=== PATIENT | female | born 1950 | race Two or more races ===

== ENCOUNTER → 2019-03-12 | Outpatient (CLI) | payer MEDICARE ==
[~2019-03-12] MED LIST: OMNIPAQUE 350 MG/ML, 100ML BOTTLE ONE
== END | disposition home or self-care (01) ==
LOC: CFH 12:45
PROVIDERS: ATTEND Family Medicine
DX: R55 Syncope and collapse (principal)
CPT/HCPCS: 70470; 82565; Q9967

== ENCOUNTER → 2019-04-23 | Outpatient (CLI) | payer MEDICARE | END | disposition home or self-care (01) | LOC: CFH 12:42 | PROVIDERS: ATTEND Internal Medicine Cardiovascular Disease | DX: I08.3 Combined rheumatic disorders of mitral, aortic and tricuspid valves (principal); E78.5 Hyperlipidemia, unspecified | CPT/HCPCS: 93306 ==

== ENCOUNTER 2020-05-01 21:18 | Emergency (ER) | payer MEDICARE ==
[~2020-05-01] VITALS: Ht 165.1 cm; Wt 54.5 kg
[2020-05-01] MEDS ORDERED: ONDANSETRON ODT 4 MG ONE (21:24)
--- NOTE | 2020-05-01 21:27 | NUR ---
PT MEDICATED IN TRIAGE FOR VOMITING
[2020-05-01] MEDS ORDERED: ONDANSETRON 4 MG TABLET PO ONE (21:30)
[2020-05-01] MEDS ORDERED: ONDANSETRON 2MG/ML, 2ML ONE (21:40)
[2020-05-01] MEDS ORDERED: HYDROmorphone 1 MG/ML, 1ML INJ ONE (21:40)
[2020-05-01] MEDS ORDERED: ONDANSETRON ODT 4 MG PO ONE (22:00)
[2020-05-01] MEDS ORDERED: SODIUM CHLORIDE 0.9% 1,000ML IVBOLUS ONE (22:00)
[2020-05-01] MEDS ORDERED: HYDROmorphone 1 MG/ML, 1ML INJ IVPush PRN (22:00)
[2020-05-01] MEDS ORDERED: PROMETHAZINE 25 MG/ML, 1ML IM ONE (22:00)
[2020-05-01] MEDS ORDERED: SODIUM CHLORIDE FLUSH 10ML SYR IVF ONE (22:00)
[2020-05-01 22:15] LABS: BASOPHILS # (AUTO) 0.05 x10^3/uL (0-0.1); BASOPHILS % (AUTO) 0 % (0-1); EOSINOPHILS # (AUTO) 0.17 x10^3/uL (0-0.4); EOSINOPHILS % (AUTO) 1 % (1-7); LYMPHOCYTES # (AUTO) 0.37 x10^3/uL (1-3.4); LYMPHOCYTES % (AUTO) 3 % (22-44); MD NO; MEAN CORPUSCULAR HEMOGLOBIN 30.9 pg (27.0-34.8); MEAN CORPUSCULAR HGB CONC 33.7 g/dL (32.4-35.8); MEAN CORPUSCULAR VOLUME 91.7 fL (80-100); MEAN PLATELET VOLUME 8.8 fL (7.4-10.4); MONOCYTES # (AUTO) 0.24 x10^3/uL (0.2-0.8); MONOCYTES % (AUTO) 2 % (2-9); NEUTROPHILS # (AUTO) 11.43 x10^3/uL (1.8-6.8); NEUTROPHILS % (AUTO) 93 % (42-75); PLATELET COUNT 236 x10^3/uL (130-400); RED BLOOD COUNT 5.08 x10^6/uL (3.82-5.3); RED CELL DISTRIBUTION WIDTH 12.8 % (9.6-15.2)
[2020-05-01 22:25] LABS: ALANINE AMINOTRANSFERASE 30 U/L (12-78); ALBUMIN 4.5 g/dL (3.4-5.0); ANION GAP 10 mmol/L (5-15); CALCIUM 9.2 mg/dL (8.5-10.1); CHLORIDE 102 mmol/L (98-107); CREATININE 0.87 mg/dL (0.55-1.02)
[2020-05-01 22:29] LABS: ALKALINE PHOSPHATASE 81 U/L (45-117); BILIRUBIN,TOTAL 0.7 mg/dL (0.2-1.0); TOTAL PROTEIN 8.3 g/dL (6.4-8.2); TROPONIN I < 0.015 ng/mL (0.000-0.045)
[2020-05-01 22:43] LABS: MICROSCOPIC AUTO
[2020-05-01] MEDS ORDERED: OMNIPAQUE 350 MG/ML, 100ML BOTTLE ONE (23:51)
--- NOTE | 2020-05-02 00:30 | NUR ---
PATIENT STATED THAT SHE WAS DIZZY WHEN STANDING UP. NO CHANGE IN PATIENT'S VITAL SIGNS. PATIENT GIVEN EDUCATION REGARDING PAIN MEDICATION GIVEN PREVIOUSLY. WILL GIVE PATIENT 30 MINS AND REASSESS FOR DISCHARGE.
[2020-05-02] MEDS ORDERED: ONDANSETRON 2MG/ML, 2ML ONE (00:53)
--- NOTE | 2020-05-02 00:58 | NUR ---
PATIENT AMBULATED TO RESTROOM, GAIT IS UNSTEADY AT THIS TIME. PATIENT IS UNABLE TO KEEP OXYGEN SATURATION ABOVE 89% ON RA. SPOKE WITH MD REGARDING PATIENT'S DISCHARGE. WILL KEEP PATIENT ADDITIONAL 1HR TO RE-EVALUATE PATIENT FOR SAFE DISCHARGE. PATIENT GIVEN 4MG ZOFRAN IVP FOR NAUSEA.
--- NOTE | 2020-05-02 01:58 | NUR ---
Break RN: patient states " I little bit dizzy but not like earlier ".
--- NOTE | 2020-05-02 02:10 | NUR ---
PATIENT STATED THAT SHE WOULD LIKE TO TRY AND GO HOME. PATIENT'S GAIT IS STEADY, AND VITAL SIGNS ARE STABLE. PATIENT AMBULATORY TO RESTROOM, VOMITING CONTINUED. SPOKE WITH PROVIDER. WILL ADMINISTER PHENAGREN 25MG IM.
[2020-05-02] MEDS ORDERED: PROMETHAZINE 25 MG/ML, 1ML ONE (02:25)
--- NOTE | 2020-05-02 02:47 | NUR ---
PATIENT STATED THAT SHE WANTED TO GO HOME, AND NOT WAIT FOR MEDICATION TO START WORKING. PATIENT WAS GIVEN INFORMATION REGARDING SELF CARE AT HOME. PATIENT'S VITAL SIGNS ARE STABLE. PATIENT TAKEN TO DISCHARGE DESK VIA WHEELCHAIR TO IMPROVE PATIENT SAFETY. PATIENT VERBALIZED UNDERSTANDING OF ZOFRAN PRESCRIPTION AND AT HOME USAGE.
[2020-05-02 02:48] VITALS: BP 143/52
== END 2020-05-02 02:46 | disposition home or self-care (01) ==
LOC: ED 22:33
DX: R11.2 Nausea with vomiting, unspecified (principal); R19.7 Diarrhea, unspecified; R10.84 Generalized abdominal pain; R94.31 Abnormal electrocardiogram [ECG] [EKG]; E78.5 Hyperlipidemia, unspecified; E78.00 Pure hypercholesterolemia, unspecified; Z90.49 Acquired absence of other specified parts of digestive tract
CPT/HCPCS: 36415; 74177; 80053; 81001; 83605; 83690; 84484; 85025; 87086; 93005; 96361; 96372; 96374; 99285; J1170; J2550; J7030; Q0162; Q9967